=== PATIENT | male | born 1980 | race Caucasian/White ===

== ENCOUNTER 2018-11-19 01:48 | Emergency (ER) | payer BC ==
[2018-11-19] MEDS ORDERED: Silver Nitrate/Potassium Nitr* 1 EA STICK ONE (02:09)
[2018-11-19] MEDS ORDERED: Silver Nitrate/Potassium Nitr* 1 EA STICK TOPICAL ONE (02:10)
--- NOTE | 2018-11-19 02:15 | ED ---
Laceration/Wound HPI - HPI Summary HPI Summary: This patient is a 38 year old M presenting to [facility] with a chief complaint of laceration on right lower extremity for approx. 45 mins. Unknown what he cut his leg on. Pt has HTN, and take losartan. Pt also takes Jillian. - History of Current Complaint Stated Complaint: BLEEDING PER EMS Time Seen by Provider: 11/19/18 02:04 Hx Obtained From: Patient Onset/Duration: Lasting Minutes, Still Present Aggravating: Nothing Alleviating: Nothing Timing: Constant Current Severity: None Pain Intensity: 0 Pain Scale Used: 0-10 Numeric Associated Signs & Symptoms: Negative - Allergy/Home Medications Allergies/Adverse Reactions: Allergies Allergy/AdvReac Type Severity Reaction Status Date / Time No Known Allergies Allergy Verified 11/19/18 01:59 Home Medications: Home Medications Fexofenadine/Pseudoephedrine [Jillian-D 24 Hour Tablet] 1 each PO DAILY [History Confirmed 11/19/18] Losartan Potassium [Cozaar] 25 mg PO DAILY 11/19/18 [History Confirmed 11/19/18] PMH/Surg Hx/FS Hx/Imm Hx Cardiovascular History: Reports: Hx Hypertension Sensory History: Denies: Hx Glaucoma, Hx Deafness Opthamlomology History: Denies: Hx Legally Blind EENT History: Denies: Hx Deafness Infectious Disease History: No Infectious Disease History: Reports: Traveled Outside the in Last 30 Days - [place] - Social History Occupation: Employed Full-time Alcohol Use: None Hx Substance Use: No Substance Use Type: Reports: None Hx Tobacco Use: No Smoking Status (MU): Never Smoked Tobacco Review of Systems Negative: Fever Positive: Other - laceration All Other Systems Reviewed And Are Negative: Yes Physical Exam - Summary Physical Exam Summary: VITAL SIGNS: Reviewed. GENERAL: Patient is a well-developed and nourished male who is lying comfortable in the stretcher. Patient is not in any acute respiratory distress. HEAD AND FACE: No signs of trauma. No ecchymosis, hematomas or skull depressions. No sinus tenderness. EYES: PERRLA, EOMI x 2, No injected conjunctiva, no nystagmus. EARS: Hearing grossly intact. Ear canals and tympanic membranes are within normal limits. MOUTH: Oropharynx within normal limits. NECK: Supple, trachea is midline, no adenopathy, no JVD, no carotid bruit, no c- spine tenderness, neck with full ROM CHEST: Symmetric, no tenderness at palpation LUNGS: Clear to auscultation bilaterally. No wheezing or crackles. CVS: Regular rate and rhythm, S1 and S2 present, no murmurs or gallops appreciated. ABDOMEN: Soft, non-tender. No signs of distention. No rebound no guarding, and no masses palpated. Bowel sounds are normal. EXTREMITIES: FROM in all major joints, no edema, no cyanosis or clubbing. Pinpoint varicose vein bleeding over right leg. NEURO: Alert and oriented x 3. No acute neurological deficits. Speech is normal and follows commands. SKIN: Dry and warm Triage Information Reviewed: Yes Vital Signs On Initial Exam: Initial Vitals Temp Pulse Resp BP Pulse Ox 98.1 F 101 18 173/117 95 11/19/18 01:56 11/19/18 01:56 11/19/18 01:56 11/19/18 01:56 11/19/18 01:56 Vital Signs Reviewed: Yes Procedures - Laceration/Wound Repair 1 Location: lower extremity Laceration/Wound Explored: clean Suture Type: Prolene - 4-0 Number of Sutures: 1 - 8 SHAPED STITCH Diagnostics - Vital Signs Vital Signs Temp Pulse Resp BP Pulse Ox 11/19/18 01:56 98.1 F 101 18 173/117 95 - Laboratory Lab Statement: Any lab studies that have been ordered have been reviewed, and results considered in the medical decision making process. Laceration Repair Course/Dx - Course Course Of Treatment: This patient is a 38 year old M presenting to [facility] with a chief complaint of laceration on right lower extremity for approx. 45 mins. Unknown what he cut his leg on. Pt has HTN, and take losartan. Pt also takes Jillian. Physical exam findings are normal except, pinpoint varicose vein bleeding over right leg. Tried to cauterized pinpoint with silver nitrate but this did not work. Instead used one 8 shaped stitch. Request tetanus shot post. Pt has Hx of HTN and pt states he did not take his medication, Losartan today. In the ED course the patient was given Alprazolam, and Losartan. Patient will be discharged with follow up from PCP. The patient is agreeable with this plan. - Clinical Impression Provider Diagnoses: Varicose vein of leg Discharge - Sign-Out/Discharge Documenting (check all that apply): Patient Departure Patient Received Moderate/Deep Sedation with Procedure: No - Discharge Plan Condition: Stable Disposition: HOME Referrals: [facility] [Outside] - 11/30/18 Additional Instructions: PLEASE RETURN TO THE ED IMMEDIATELY FOR WORSENING OR CONCERNING SYMPTOMS. FOLLOW UP WITH PRIMARY CARE PHYSICIAN IN 10 DAYS TO GET STITCHES REMOVED. - Attestation Statements Document Initiated by Scribe: Yes Documenting Scribe: Ginger Borrego Provider For Whom Scribe is Documenting (Include Credential): Dr. Dyana Hubbard MD Scribe Attestation: IGinger scribed for Dr. Dyana Hubbard MD on 11/19/18 at 0423. Status of Scribe Document: Ready
[2018-11-19] MEDS ORDERED: cloNIDine TAB* 0.1 MG PO ONE (02:42)
[2018-11-19] MEDS ORDERED: ALPRAZolam TAB* 0.5 MG PO ONE (02:42)
[2018-11-19] MEDS ORDERED: Tetan/Diph/Pertus SYR(Tdap)* 0.5 ML SYR(BOOSTRIX) use SYR IM ONE (03:29)
[2018-11-19] MEDS ORDERED: Losartan TAB* 25 MG PO ONE (04:20)
[2018-11-19 04:47] VITALS: BP 160/110
== END 2018-11-19 04:47 | disposition home or self-care (01) ==
LOC: ED 01:48
DX: I83.891 Varicose veins of right lower extremity with other complications (principal); Z23 Encounter for immunization; I10 Essential (primary) hypertension; Z79.899 Other long term (current) drug therapy
CPT/HCPCS: 12001; 90471; 90715; 99283; A9270-GY